=== PATIENT | female | born 1985 | race Hispanic/Latino ===

== ENCOUNTER 2019-03-28 10:57 | Day surgery (SDC) | payer SELFPAY ==
[2019-03-26 12:44] LABS: Absolute Lymphocytes (CBC) 2.2 K/uL (0.7-4.9); Basophils % 0.9 % (0-1.3); Hematocrit 42.3 % (36.0-45.0); Lymphocytes % 22.8 % (15.3-44.8); RBC Red Blood Cell Count 4.89 M/uL (3.86-4.86)
[2019-03-26 12:54] LABS: ALT/SGPT 26 U/L (12-78); AST/SGOT 17 U/L (15-37); Albumin 3.7 g/dL (3.4-5.0); Alkaline Phosphatase 74 U/L (45-117); BUN Blood Urea Nitrogen 12 mg/dL (7-18); Bicarbonate 25 mmol/L (21-32); Bilirubin Total 0.4 mg/dL (0.2-1.0); Glucose Level 89 mg/dL (74-106); Potassium 4.4 mmol/L (3.5-5.1); Protein, Total 6.9 g/dL (6.4-8.2); Sodium Level 141 mmol/L (136-145)
--- OUTSIDE RECORDS SUMMARY | 2019-03-28 11:05 | XMS REPORT ---
:1985 Author Organization e[employer]Works Care Team Providers Name Role Phone Baltazar Cardoza Provider Role Unavailable Allergies, Adverse Reactions, Alerts Substance Reaction Event Type Seroquel Info Not Available Drug Allergy Problems Problem Type Condition Code Onset Dates Condition Status Assessment Encounter for initial prescription Z30.017 Active of implantable subdermal contraceptive Assessment Nexplanon removal Z30.46 Active Problem Bipolar affective F31.9 Active Problem Scoliosis (and kyphoscoliosis), M41.20 Active idiopathic Problem Obesity (BMI 30-39.9) E66.9 Active Problem Encounter for initial prescription Z30.017 Active of implantable subdermal contraceptive Assessment Encounter for surveillance of Z30.46 Active implantable subdermal contraceptive Problem Encounter for surveillance of Z30.46 Active implantable subdermal contraceptive Problem Nexplanon removal Z30.46 Active Medications Medication Code Code Instructions Start End Status Dosage System Date Date Lamictal ND 53706064654 25 MG Orally Active 1 tablet Twice a day Metformin HCl ND 22558280848 1000 MG Orally Active 1 tablet Once a day with a meal Levothyroxine Sodium ND 03380249863 50 MCG Orally Active 1 tablet Once a day on an empty stomach in the morning Hydrochlorothiazide NDC 12864964131 25 MG Orally Active 1 tablet Once a day in the morning Results Name Result Date Reference Range Unit Abnormality Flag URINALYSIS AUTO W/O SCOPE (93009) ----NIT Neg 20171113 ----URO 0.2 20171113 ----PROTEIN Neg 20171113 ----pH 6.0 20171113 ----BLO Trace 20171113 ----GLUCOSE Neg 20171113 ----TARAN Neg 20171113 ----BILIRUBIN Neg 20171113 ----KETONES Neg 20171113 ----SPECIFIC GRAVITY >=1.030 20171113 Summary Purpose eClinicalWorks Submission
--- OUTSIDE RECORDS SUMMARY | 2019-03-28 11:05 | XMS REPORT ---
:1985 Author Organization [employer]Works Care Team Providers Name Role Phone Umm Gordon Provider Role Unavailable Allergies, Adverse Reactions, Alerts Substance Reaction Event Type Seroquel Info Not Available Drug Allergy Problems Problem Type Condition Code Onset Dates Condition Status Assessment Obesity (BMI 30-39.9) E66.9 Active Problem Bipolar affective F31.9 Active Problem Scoliosis (and kyphoscoliosis), M41.20 Active idiopathic Problem Obesity (BMI 30-39.9) E66.9 Active Problem Encounter for initial prescription Z30.017 Active of implantable subdermal contraceptive Assessment Bipolar affective F31.9 Active Problem Encounter for surveillance of Z30.46 Active implantable subdermal contraceptive Problem Nexplanon removal Z30.46 Active Medications Medication Code Code Instructions Start End Status Dosage System Date Date Lamictal [facility] [address]-24 25 MG Orally Active 2 tablets once daily Lamictal ND 24053805063 25 MG Orally Active 1 tablet Twice a day Hydrochlorothiazide ND 98643982965 25 MG Orally Active 1 tablet in Once a day the morning Metformin HCl ND 38255911431 1000 MG Active 1 tablet Orally Once a with a meal day Mupirocin ND 89440760669 2 % November Active 1 Externally , 11, application Two times a 2017 2018 to affected day area Levothyroxine Sodium ND 36528026412 50 MCG Orally Active 1 tablet on Once a day an empty stomach in the morning Results No Known Results Summary Purpose eClinicalWorks Submission
[2019-03-28] MEDS ORDERED: Ringers Lactate 1,000 ML IV ONE (11:13)
[2019-03-28] MEDS ORDERED: MIDAZOLAM HCL 2 MG/2 ML INJ ONE ×3 (11:24→11:58)
[2019-03-28] MEDS ORDERED: FENTANYL CITR 100 MCG/2 ML ONE ×2 (11:24→11:57)
[2019-03-28] MEDS ORDERED: LIDOCAINE 2% INJ, MPF 2 ML 2 ML ONE (11:25)
[2019-03-28] MEDS ORDERED: dexAMETHasone 4 MG/ML VIAL ONE (11:25)
[2019-03-28] MEDS ORDERED: ROPLVACAINE HCL 40 ML ONE (11:26)
[2019-03-28] MEDS: CEFAZOLIN/SWI 1gm 1 GM/10 ML SYR ONE ×4 (11:56→12:23)
[2019-03-28] MEDS ORDERED: PROPOFOL 200 MG/20 ML VIAL IV ONE (11:57)
[2019-03-28] MEDS ORDERED: LIDOCAINE 1% MPF 5 ML VIAL ONE (11:58)
[2019-03-28] MEDS ORDERED: ONDANSETRON 4 MG/2 ML VIAL ONE (12:02)
[2019-03-28] MEDS ORDERED: NS 0.9% VIAL 10 ML ONE (12:55)
--- NOTE | 2019-03-28 14:05 | P.BOP ---
Preoperative diagnosis: right ankle fracture Postoperative diagnosis: right medial/lat malleolus fracture Primary procedure: ORIF right medial/lateral malleolus Estimated blood loss: 20ccs Anesthesia: General Complications: None Transferred to: Recovery Room
[2019-03-28] MEDS ORDERED: MEPERIDINE HCL 25 MG/0.5 ML ONE (14:34)
[2019-03-28 15:17] VITALS: O2SAT 99
[2019-03-28 15:46] VITALS: BP 130/50; TEMP 98
--- NOTE | 2019-03-29 01:04 | OP ---
Date of Procedure: 03/28/2019 Surgeon: Jairon Licona MD Preoperative Diagnosis: Right ankle fracture dislocation with injury to both medial and lateral mall eolus. Postoperative Diagnosis: Right ankle fracture dislocation with injury to both medial and lateral mal leolus. Procedure: Right ankle open reduction and internal fixation of both medial and lateral malleolus. Estimated Blood Loss: 20 mL. Complications: None. Specimens: No pathology specimens sent. Indications For Operation: Ms. Vieyra is a 33-year-old female, unfortunately sustained a fracture and dislocation of her ankle. She had it reduced at [facility] and had arrived to see me in my office in a splint. Review of her x-rays revealed what appeared to be a small fracture off the medi al malleolus as well as a relatively larger displaced fracture of the lateral malleolus of a reduced ankle fracture dislocation. It was obvious that we were going to fix the lateral side. The medial s justyn possibly could be treated nonoperatively based on its fracture pattern, however, it did appear th at may very well need to operate on the medial side based on the rather unusual fracture presentation . This was explained to the patient and family, also discussed the possibility that we may need to p lace a syndesmotic screw because of the unusual pattern of the fracture. They state they understand things as presented and wish to proceed. Description Of Procedure: Patient was taken to the operating room and placed in supine position. Ge neral anesthesia was obtained by the anesthesia staff. She previously had a popliteal block in the [facility] area. C-arm was brought in and the use of the C-arm as well as the x-rays demonstrated that t he medial malleolus appeared to be quite a bit larger in reality than it appeared on the x-rays. The refore, decision was made to pursue open reduction and internal fixation of the medial side. The rig ht lower extremity was then prepped and draped in the usual sterile fashion. The leg was then elevat ed, but not exsanguinated. Tourniquet was raised. A standard vertical incision was made treating an teriorly because of the more anterior nature of the fracture fragment. It was taken down carefully t hrough skin and soft tissues. Meticulous hemostasis was being maintained using Bovie electrocautery. This leads to the fracture site, which is quite unusual in presentation, basically was nearly verti mita fracture involving the anterior colliculus, much different than standard horizontal fracture. Th e fracture site itself is clean. Towel clip was used to reduce the medial fragment, which did have a ttached ligaments. A near anatomic reduction was produced and a K-wire was placed perpendicular to t he fracture line. A 4-0 cannulated screw which was partially threaded and then measured in place ove r the K-wire. Because of the nature of the fracture did not appear to have any significant room to p lace a second K-wire or screw across, although it did appear to compress the fracture quite well. Th e medial side was then closed. Attention was then turned to the lateral aspect. The lateral aspect was approached via standard on the lateral incision, it was taken down carefully through skin and sof t tissues. Meticulous hemostasis being maintained using Bovie electrocautery. This leads down to th e fibula itself. The fracture pattern again on this side is quite unusual and the bone is quite fria ble causing increased difficulty. The fracture was reduced and brought out to length. The distal po rtion is quite short. There does not appear to be any opportunity to place a lag screw, it was held in place with a clamp as foot positioning and clamp were used to reduce this. A 1/3 tubular plate is very lightly contoured and applied proximally to allow as a buttress and it does buttress the latera l side fairly well closing down the medial clear space. The fracture site itself appears to be reduc ed. One screw was placed proximally to affix the plate as well as 2 screws distally. The distal fra gment is quite small and distal and so 2 screws were placed divergently to allow for fixation into th e fracture fragment. It did appear sag slightly posteriorly, therefore the more proximal screw was u sed as a pivot. It was then pivoted up the clamp was reapplied and the remainder of the proximal scr ews were then placed. Following this, the foot in dorsiflexion appeared to have good reduction of andreas th fractures as well as a re-established mortise. The syndesmotic screw was considered, however, I d o not think it would be beneficial in this situation as I believe the syndesmotic ligament is intact and proximal screws appear to have good bite and I do not feel that they would lose purchase. The wo und was irrigated and the skin was closed using interrupted Vicryl sutures, followed by guerita. Pat ient was then placed in extremely well-padded sterile dressing, a posterior splint with a U, and awak ened and taken to recovery room after a second adductor block was placed by Anesthesia. ANNALEE Voice ID: [id number] Report ID: [id number]
== END 2019-03-28 15:46 | disposition home or self-care (01) ==
LOC: OR 10:57
PROVIDERS: ATTEND Orthopaedic Surgery
PROC: 0QSG04Z Reposition Right Tibia with Internal Fixation Device, Open Approach (ICD-10-PCS; 2019-03-28)
PROC: 0QSJ04Z Reposition Right Fibula with Internal Fixation Device, Open Approach (ICD-10-PCS; principal; 2019-03-28 13:00)
DX: S82.841A Displaced bimalleolar fracture of right lower leg, initial encounter for closed fracture (principal); Z88.8 Allergy status to other drugs, medicaments and biological substances
CPT/HCPCS: 36415; 80053; 81025; 85025; J0690; J2175; J2250; J2405; J2704; J2795; J3010; J3490

== ENCOUNTER 2022-03-17 16:02 | Emergency (ER) | payer SELFPAY ==
--- NOTE | 2022-03-17 16:52 | ER ---
Nurse's Notes [facility] Name: Denisse Vieyra Age: 36 yrs Sex: Female : 1985 Arrival Date: 03/17/2022 Time: 16:03 Bed 20 Private MD: Diagnosis: Essential (primary) hypertension;Agitated state Presentation: 03/17 16:13 Chief complaint: EMS states: bystander called stating that patient was in driveway not ss acting right. Pt denies SI/HI at this time. Pt states, "I was just outside letting my neighborhood know what was going on.". Coronavirus screen: Client denies travel out of the [place] in the last 14 days. Ebola Screen: Patient denies exposure to infectious person. Patient denies travel to an Ebola-affected area in the 21 days before illness onset. Initial Sepsis Screen: Does the patient meet any 2 criteria? No. Patient's initial sepsis screen is negative. Does the patient have a suspected source of infection? No. Patient's initial sepsis screen is negative. Risk Assessment: Do you want to hurt yourself or someone else? Patient reports no desire to harm self or others. Onset of symptoms is unknown. 16:13 Method Of Arrival: Ambulatory ss 16:13 Acuity: LIDIA 3 ss Historical: - Allergies: 16:19 No Known Allergies; ss - Home Meds: 16:19 None [Active]; ss - PMHx: 16:19 None; ss - PSHx: 16:19 None; ss - Immunization history:: Client reports having NOT received the Covid vaccine. - Social history:: Smoking status: Patient reports the use of cigarette tobacco products, smokes one pack cigarettes per day. Patient uses alcohol, street drugs, marijuana. Assessment: 16:46 General: Patient wants to leave AMA. PAtient is CAOx4, denies any SI or HI. She will mb8 not tell provider or myself why she is here. Patient walked out of the dept without signing AMA forms. Provider aware. . Vital Signs: 16:13 BP 169 / 120; Pulse 114; Resp 16; Temp 98.9(TE); Pulse Ox 100% on R/A; Weight 90.72 kg; ss Height 5 ft. 0 in. (152.40 cm); Pain 0/10; 16:13 Body Mass Index 39.06 (90.72 kg, 152.40 cm) ED Course: 16:03 Patient arrived in ED. ss 16:06 [facility] Cook [facility]C [facility]. snw 16:06 Darian Wang MD is Attending Physician. snw 16:19 Triage completed. ss 16:19 Arm band placed on left wrist. ss Administered Medications: No medications were administered Outcome: 16:51 Patient left the ED. mb8 17:49 Discharge ordered by . snw 17:52 Patient left the ED. snw Signatures: Mayra Cook FNP-C FNP-Csnw Rosalinda Mar, MADINA RN Kerwin Mays, MADINA RN mb8
--- NOTE | 2022-03-17 16:52 | EDPHYS ---
Physician Documentation [facility] Name: Denisse Vieyra Age: 36 yrs Sex: Female : 1985 Arrival Date: 03/17/2022 Time: 16:03 Bed 20 Private MD: ED Physician Darian Wang HPI: 03/17 16:20 This 36 yrs old Female presents to ER via Ambulatory with complaints of Psych snw Problem. 16:20 The patient presents to the emergency department with psychosis, has experienced visual snw hallucinations. Onset: The symptoms/episode began/occurred suddenly. Historical: - Allergies: 16:19 No Known Allergies; ss - Home Meds: 16:19 None [Active]; ss - PMHx: 16:19 None; ss - PSHx: 16:19 None; ss - Immunization history:: Client reports having NOT received the Covid vaccine. - Social history:: Smoking status: Patient reports the use of cigarette tobacco products, smokes one pack cigarettes per day. Patient uses alcohol, street drugs, marijuana. ROS: 16:28 Constitutional: Negative for fever, chills, and weight loss, Eyes: Negative for injury, snw pain, redness, and discharge, ENT: Negative for injury, pain, and discharge, Neck: Negative for injury, pain, and swelling, Cardiovascular: Negative for chest pain, palpitations, and edema, Respiratory: Negative for shortness of breath, cough, wheezing, and pleuritic chest pain, Abdomen/GI: Negative for abdominal pain, nausea, vomiting, diarrhea, and constipation, Back: Negative for injury and pain, : Negative for injury, bleeding, discharge, and swelling, MS/Extremity: Negative for injury and deformity, Skin: Negative for injury, rash, and discoloration, Neuro: Negative for headache, weakness, numbness, tingling, and seizure. 16:28 Psych: Positive for wants to be checked out. Exam: 16:19 Constitutional: This is a well developed, well nourished patient who is awake, alert, snw and in no acute distress. Head/Face: Normocephalic, atraumatic. Eyes: Pupils equal round and reactive to light, extra-ocular motions intact. Lids and lashes normal. Conjunctiva and sclera are non-icteric and not injected. Cornea within normal limits. Periorbital areas with no swelling, redness, or edema. ENT: Nares patent. No nasal discharge, no septal abnormalities noted. Tympanic membranes are normal and external auditory canals are clear. Oropharynx with no redness, swelling, or masses, exudates, or evidence of obstruction, uvula midline. Mucous membranes moist. Neck: Trachea midline, no thyromegaly or masses palpated, and no cervical lymphadenopathy. Supple, full range of motion without nuchal rigidity, or vertebral point tenderness. No Meningismus. Chest/axilla: Normal chest wall appearance and motion. Nontender with no deformity. No lesions are appreciated. Cardiovascular: Regular rate and rhythm with a normal S1 and S2. No gallops, murmurs, or rubs. Normal PMI, no JVD. No pulse deficits. Respiratory: Lungs have equal breath sounds bilaterally, clear to auscultation and percussion. No rales, rhonchi or wheezes noted. No increased work of breathing, no retractions or nasal flaring. Abdomen/GI: Soft, non-tender, with normal bowel sounds. No distension or tympany. No guarding or rebound. No evidence of tenderness throughout. Back: No spinal tenderness. No costovertebral tenderness. Full range of motion. Skin: Warm, dry with normal turgor. Normal color with no rashes, no lesions, and no evidence of cellulitis. MS/ Extremity: Pulses equal, no cyanosis. Neurovascular intact. Full, normal range of motion. Neuro: Awake and alert, GCS 15, oriented to person, place, time, and situation. Cranial nerves II-XII grossly intact. Motor strength 5/5 in all extremities. Sensory grossly intact. Cerebellar exam normal. Normal gait. 16:19 Psych: Behavior/mood is pleasant, inappropriate for age, Affect is animated, Patient has no thoughts/intents to harm self or others. Judgement / Insight is impaired. Pt speaking to people who are not present. Vital Signs: 16:13 BP 169 / 120; Pulse 114; Resp 16; Temp 98.9(TE); Pulse Ox 100% on R/A; Weight 90.72 kg; ss Height 5 ft. 0 in. (152.40 cm); Pain 0/10; 16:13 Body Mass Index 39.06 (90.72 kg, 152.40 cm) ss MDM: 16:06 Patient medically screened. snw 17:43 Data interpreted: Pulse oximetry: on room air is 100 %. Interpretation: normal. snw Counseling: I had a detailed discussion with the patient and/or guardian regarding: Pt's family notified she was in ED but left shouting curses at staff. Response to treatment: pt left ED, no SI or HI. Special discussion: Based on the history and exam findings, there is no indication for further emergent testing or inpatient evaluation. I discussed with the patient/guardian the need to see the psychiatrist for further evaluation of the symptoms. 17:50 Data reviewed: vital signs, nurses notes, old medical records, Trying to find next of snw kin, old registration shows father of pt as person to notify. I called Aklia Ferro to help with pt dispo. Ms. Ferro contacted pt's Mother, Angeles Vieyra. Post pt leaving ED, Mother called and told us to call the police. Administered Medications: No medications were administered Disposition: 18:47 Co-signature as Attending Physician, Darian Wang MD. rn Disposition Summary: 03/17/22 17:49 Discharge Ordered Location: Home(03/17/22 17:49) snw Condition: Fair(03/17/22 17:49) snw Diagnosis - Essential (primary) hypertension snw - Agitated state snw Followup: snw - With: Emergency Department - When: As needed - Reason: Worsening of condition Followup: snw - With: Private Physician - When: 1 - 2 days - Reason: Recheck today's complaints, Continuance of care, Re-evaluation by your physician Forms: - Medication Reconciliation Form snw - Thank You Letter snw - Antibiotic Education snw - Prescription Opioid Use snw Signatures: Mayra Cook, WATER CARTER-C WATER CARTER-Csnw Darian Wang MD MD rn Smirch, Shelby, RN RN Kerwin Palomino, RN RN mb8 Corrections: (The following items were deleted from the chart) 17:48 17:43 Data reviewed: vital signs, nurses notes, snw snw 17:48 16:51 Home mb8 snw 17:48 16:51 Fair mb8 snw 17:48 17:47 an acute exacerbation snw snw 17:48 17:47 are unchanged snw snw 17:48 17:47 Agitated state snw snw
[2022-03-17 18:19] VITALS: BP 169/120; TEMP 98.9; O2SAT 100
== END 2022-03-17 17:52 | disposition home or self-care (01) ==
LOC: ER 16:02
DX: R45.1 Restlessness and agitation (principal); R44.1 Visual hallucinations; I10 Essential (primary) hypertension
CPT/HCPCS: 99281